=== PATIENT | female | born 1985 | race Caucasian/White ===

== ENCOUNTER 2017-01-25 17:44 | Emergency (ER) | payer MEDICAID ==
--- NOTE | 2017-01-25 18:02 | ED Physician Chart ---
ED Chief Complaint/HPI - Patient Information Date Seen:: 01/25/17 Time Seen:: 17:55 Chief Complaint:: Low abdominal pain for 1 week History of Present Illness:: 31 yo female, , had new onset of low abdominal pain for 1 week, followed by menstrual bleeding. The pain is sharp, constant, 10/10, not relieved by Ibuprofen. Denies nausea or vomiting. The patient was recently diagnosed with uterine fibroids 3 weeks ago due to abnormal vaginal bleeding for 1 year. Currently, the patient is on oral contraceptive pills. Allergies:: Allergies Allergy/AdvReac Type Severity Reaction Status Date / Time acetaminophen [From Vicodin] Allergy Verified 01/25/17 17:51 hydrocodone [From Vicodin] Allergy Verified 01/25/17 17:51 promethazine Allergy Verified 01/25/17 17:50 ED Review of Systems - Review of Systems General/Constitutional: No fever, No chills Skin: No skin lesions Head: No headache Eyes: No loss of vision ENT: No earache Neck: No neck pain Cardio Vascular: No chest pain Pulmonary: No SOB GI: No nausea, No vomiting G/U: No dysuria Bulldozer Engineer: Abnormal vaginal bleeding Musculoskeletal: No bone or joint pain ED Past Medical History - Past Medical History Past Medical History: No significant medical hx, Other () Social History: Non Smoker, No Alcohol, No Drug Use Surgical History: Cholecystectomy, , Hernia, other (Left ovarian cyst removal) Family Medical History - Family Member Mother History Unknown: Yes ED Physical Exam - Physical Examination General/Constitutional: Awake, Well-developed, well-nourished, Alert, Non-toxic appearing, Ambulatory Head: Atraumatic Eyes: PERRL, EOMI Skin: No skin lesions ENMT: External ears, nose nl Neck: Nontender, Full ROM w/o pain Respiratory: Clear to Auscultation, No Wheeze/Rhonchi/Rales Cardio Vascular: RRR, No murmur, gallop, rubs, NL S1 S2 Other GI comments:: obese, soft, tenderness at lower quadrant abdomen, bowel sound normal Extremities: normal strength in all extremities Neuro/Psych: No focal deficits ED Assessment - Assessment General Assessment: 31 yo female has low abdominal/pelvic pain, menorrhagia, blood loss anemia, uterine fibroids. Critical Care Time: 45 min Excludes all billable procedures: Yes This condition life threatening/high prob of deterioration: No Assessment/Comments:: CBC, CMP, PT/PTT, UA, hCG CT abdomen/pelvis Pain control ED Septic Shock - . Is Septic Shock (SBP<90, OR Lactate>4 mmol\L) present?: No
[2017-01-25 19:02] LABS: HEMATOCRIT 33.1 % (41.0-60); HEMOGLOBIN 10.8 gm/dL (12-16); MEAN CELL VOLUME 82.2 fl (81-100); MEAN CORPUSCULAR HEMOGLOBIN 26.8 pg (27.0-31.0); MEAN CORPUSCULAR HGB CONC 32.6 pg (28.0-36.0); MEAN PLATELET VOLUME 8.4 fl; PLATELET COUNT 240 Th/cmm (150-400); RED BLOOD COUNT 4.02 Mil/cmm (3.80-5.10)
[2017-01-25 19:15] LABS: INR 0.89 (0.5-1.4); PROTHROMBIN TIME (TEST) 9.1 SECONDS (9.5-11.5)
[2017-01-25 19:17] LABS: ALB/GLOB RATIO 1.3 (1.0-1.8); ALKALINE PHOSPHATASE 38 U/L (34-104); ANION GAP 8.6 (7.0-16.0); BILIRUBIN,TOTAL 0.3 mg/dL (0.3-1.0); BUN - UREA NITROGEN 13 mg/dL (7-25); BUN/CREATININE RATIO 16.3; CALCIUM SERUM 9.2 mg/dL (8.6-10.3); CARBON DIOXIDE 26.2 mEq/L (21.0-31.0); CHLORIDE 104 mEq/L (98-107); CREATININE - SERUM 0.8 mg/dL (0.6-1.2); GLUCOSE 99 mg/dL (70-105); POTASSIUM SERUM 3.8 mEq/L (3.5-5.1); SGOT 13 U/L (13-39); SGPT/ALT 10 U/L (7-52); SODIUM SERUM 135 mEq/L (136-145)
[2017-01-25 19:18] LABS: AMYLASE SERUM 27 U/L (29-103); LIPASE 18 U/L (11-82)
[2017-01-25 19:28] LABS: BAND NEUTROPHILE 1 % (0-10); EOSINOPHIL 1 % (0-5); NEUTROPHILS 83 % (40-80); TOTAL CELLS COUNTED 100
[2017-01-25] MEDS ORDERED: Acetaminophen 500 MG TAB PO ONE (19:28)
[2017-01-25 19:29] LABS: ANISOCYTOSIS 2+; PLATELET ESTIMATE ADEQUATE (NORMAL); PLATELET MORPHOLOGY NORMAL (NORMAL)
--- NOTE | 2017-01-25 21:21 | ER Physician Documentation ---
DATE OF SERVICE: 01/25/2017 I was endorsed by Dr. Johnston to see the CT scan of the abdomen and pelvis and if nothing acute is going on, to discharge the patient. I looked at all the labs and nothing significantly wrong was found. The patient will be going home. A CT of the abdomen and pelvis was done which showed an enlarged large fibroid uterus, which the patient knows of. She has seen the base loader. She is having vaginal bleeding. The base loader has already told she has a 5-cm left adnexal cystic lesion and an ultrasound was recommended. Prominent fatty liver, status post cholecystectomy. No free fluid in the abdomen, no small-bowel obstruction. It was interpreted by Dr. Shipley ____. This was explained to, Ayan, the nurse here, and this was discussed with him. I discussed the case with the patient. The patient will be going home and I felt the patient's belly, to me, it is lower abdominal pain and tenderness. There might be some pelvic inflammatory disease for which I have given doxycycline 100 mg p.o. twice a day for 7 days, Flagyl 500 mg p.o. 3 times a day for 7 days, ferrous sulfate, which might give constipation and black-colored stools, and just instructed the nurse to let her know. If she gets constipation, then she can take some Colace tablets. Otherwise one tablet should not cause a lot of trouble. She could use some fiber things, and the patient will be going home. JOB# [id number]
--- NOTE | 2017-01-26 00:40 | ER Physician Documentation ---
DATE OF SERVICE: 01/25/2017 PATIENT IDENTIFICATION: Emergency Room visit and evaluation and treatment for this patient and if medically cleared, the patient need to go to Psychiatric Unit that is the instruction I was given. The patient came to [facility] from [facility]. The patient's primary care physician is Dr. Matt Galindo, who advised that the patient to be admitted to a Psych Unit. The patient is not oriented to time and space, does not know what is going on with her. She knows she is in the hospital. According to one nurse, she said that she knew her name, but other than that she does not know why she is here. She does not know whether she is , whether her is alive, whether she has any children. In short, no history is obtained from the patient. HISTORY OF PRESENT ILLNESS: The patient's history that is passed on to me from the old thing is that the patient has low back pain. The patient has chronic obstructive lung disease, unspecified lack of coordination, other abnormalities of gait and mobility. The patient has chronic bronchitis, chronic kidney disease stage 3, moderate amount; age-related osteoporosis without current pathological fracture, atherosclerosis of the aorta, unspecified dementia without behavioral disturbances, Alzheimer's disease, personal history of malignant carcinoid tumor of large intestine, personal history of other pathological fracture. The patient was advised CT of the abdomen and pelvis and the patient was advised clean liquid diet and tramadol was ordered by Dr. Johnston, and I came on duty I ordered some labs and x-ray chest and x-ray chest does not show any definite evidence of pneumonia, but the patient does have some rales and rhonchi heard in both lung robertson, hence the x-ray chest was ordered to rule out pneumonia, but looks like the patient has chronic bronchitis and maybe some [id number] bronchitis. REVIEW OF SYSTEMS: Could not be obtained as the patient is confused and disoriented. PAST MEDICAL HISTORY: Cannot be obtained as the patient is again confused, disoriented. PHYSICAL EXAMINATION: GENERAL: On physical examination, the patient appears to be awake and does not know where she is. She does not know whether her is alive. She does not know whether she has any children. Adequately built, seems to be poorly nourished. HEENT: Conjunctivae are pink. Eyes are normal. Eyes: Pupils are reacting to light, somewhat about 2 mm. EXTREMITIES: No edema, no cyanosis, no petechia or ecchymosis. CHEST: Reveals bilateral scattered rales and rhonchi. Few scattered rales and rhonchi are audible. Trachea being central. Fairly good air entry in both lungs. BONES AND JOINTS: No fractures are noted. HEART: Reveals normal heart sounds. Soft fourth heart sound. Second heart sounds physiologically split. Third heart sound is absent. Fourth heart sound is soft. ABDOMEN: Soft, benign and negative. Lower midline surgical scar is noted. I am not sure what that scar is for, whether the patient had any hysterectomy done in the past or what surgery was done. CLINICAL DIAGNOSES: The patient has acute confusion, disorientation and loss of consciousness and decreased appetite and for the patient orders has been returning to get some workup to be done and no lab results are available at the present moment, but will give a call to Dr. Gutierrez once we get some labs and the patient will be admitted to the Psych Unit. FINAL DIAGNOSES: Acute loss of consciousness, confusion, disorientation, weakness, probably dementia, generalized weakness and decreased appetite. The patient has other diagnoses which includes low back pain and [id number] bronchitis. No definite pneumonia is noted. Lack of coordination, other abnormalities of gait and mobility, unspecified chronic bronchitis. The patient had in the past, chronic kidney disease stage 3, age-related osteoporosis without current pathological fracture, atherosclerosis of the aorta, unspecified dementia without behavioral disturbances, Alzheimer disease, unspecified; personal history of malignant carcinoid tumor of large intestine, and personal history of pathological fractures. Thank you again. JOB# [id number]
--- NOTE | 2017-01-26 07:41 | Diagnostic Imaging Report ---
CT scan of the abdomen and pelvis without intravenous contrast History: Lower abdominal pain Total DLP equals 581 CTDI equals 12.8 Axial sections were obtained from the xiphoid process down to the pubic symphysis. Normal aeration of lung parenchyma the bases appreciated. The liver demonstrates hepatomegaly. Fatty infiltration is noted. No focal lesions are seen. There is evidence of previous cholecystectomy. The spleen appears normal. No abnormalities are seen in the region of the pancreas. The kidneys appear normal bilaterally. Adrenal glands are normal The exam of the pelvis demonstrates enlarged fibroid uterus measuring 13 cm longest diameter. There is evidence for 5.1 cm left adnexal cyst most likely ovarian origin ultrasound examination of pelvis recommended. Impression: 1. Hepatomegaly fatty infiltration of liver parenchyma. 2. Status post cholecystectomy. 3. Enlarged fibroid uterus with left adnexal cystic lesion which might represent ovarian cyst ultrasound examination of pelvis is recommended.
== END 2017-01-25 20:30 | disposition home or self-care (01) ==
LOC: ER 17:44
DX: R10.30 Lower abdominal pain, unspecified (principal); N92.0 Excessive and frequent menstruation with regular cycle; D50.0 Iron deficiency anemia secondary to blood loss (chronic); D25.9 Leiomyoma of uterus, unspecified
CPT/HCPCS: 99291; 74176; 36415; 85007; 85027; 85610; 82150; 84703; 81025; 83690; 80053; J0696; Z7502

== ENCOUNTER 2017-01-28 05:31 | Inpatient (IN) | payer MEDICAID ==
--- NOTE | 2017-01-28 06:02 | ED Physician Chart ---
ED Chief Complaint/HPI - Patient Information Date Seen:: 01/28/17 Time Seen:: 05:30 Chief Complaint:: Abdominal Pain History of Present Illness:: onset x 3 hours RRT of intermittent, crampy, diffuse abdominal pain, especially in the lower quadrants with N/V; pt denies trauma, H/As, neck pain, S/T, C/P, SOB, cough, fever, chills, or urinary s/s; pt is A0; LNMP: pt has irregular menstual periods Allergies:: Allergies Allergy/AdvReac Type Severity Reaction Status Date / Time acetaminophen [From Vicodin] Allergy Verified 01/25/17 17:51 hydrocodone [From Vicodin] Allergy Verified 01/25/17 17:51 promethazine Allergy Verified 01/25/17 17:50 Historian:: Patient Review:: Nurse's Note Reviewed <Uvaldo Kennedy - Last Filed: 01/28/17 05:57> - Patient Information Allergies:: Allergies Allergy/AdvReac Type Severity Reaction Status Date / Time acetaminophen [From Vicodin] Allergy Verified 01/25/17 17:51 hydrocodone [From Vicodin] Allergy Verified 01/25/17 17:51 promethazine Allergy Verified 01/25/17 17:50 Vitals:: Vital Signs - 8 hr 01/28/17 05:35 HR 111 RR 20 BP 138/89 O2 Sat % 99 <Armand Thomas - Last Filed: 01/28/17 12:14> ED Review of Systems - Review of Systems General/Constitutional: No fever, No chills, No weight loss, No weakness, No diaphoresis, No edema, No loss of appetite Skin: No skin lesions, No rash, No bruising Head: No headache, No light-headedness Eyes: No loss of vision, No pain, No diplopia ENT: No earache, No nasal drainage, No sore throat, No tinnitus Neck: No neck pain, No swelling, No thyromegaly, No stiffness, No mass noted Cardio Vascular: No chest pain, No palpitations, No PND, No orthopnea, No edema Pulmonary: No SOB, No cough, No sputum, No wheezing GI: Nausea, Vomiting, Diarrhea, Pain, No melena, No hematochezia, No constipation, No hematemesis G/U: No dysuria, No frequency, No hematuria Flatbed Owner Operator: Vaginal discharge, Abnormal vaginal bleeding, No contraction Musculoskeletal: No bone or joint pain, No back pain, No muscle pain Endocrine: No polyuria, No polydipsia Psychiatric: No prior psych history, No depression, No anxiety, No suicidal ideation Hematopoietic: No bruising, No lymphadenopathy Allergic/Immuno: No urticaria, No angioedema Neurological: No syncope, No focal symptoms, No weakness, No paresthesia, No headache, No seizure, No dizziness, No confusion, No vertigo <Uvaldo Kennedy - Last Filed: 01/28/17 05:57> ED Past Medical History - Past Medical History Obtainable: Yes Past Medical History: Other (Uterine Fibroids) Family History: HTN Social History: Non Smoker, No Alcohol, No Drug Use, Single Surgical History: None Psychiatricy History: None Medication: Reviewed <Uvaldo Kennedy Karl Filed: 01/28/17 05:57> Family Medical History - Family Member Mother History Unknown: Yes <Uvaldo Kennedy [facility] Filed: 01/28/17 05:57> ED Physical Exam - Physical Examination General/Constitutional: Awake, Well-developed, well-nourished, Alert, No distress, GCS 15, Non-toxic appearing, Ambulatory Head: Atraumatic Eyes: Lids, conjuctiva normal, PERRL, EOMI Skin: Nl inspection, No rash, No skin lesions, No ecchymosis, Well hydrated, No lymphadenopathy ENMT: External ears, nose nl, Nasal exam nl, Lips, teeth, gums nl Neck: Nontender, Full ROM w/o pain, No JVD, No nuchal rigidity, No bruit, No mass, No stridor Respiratory: Nl effort/Exclusion, Clear to Auscultation, No Wheeze/Rhonchi/Rales Cardio Vascular: RRR, No murmur, gallop, rubs, NL S1 S2 GI: No organomegaly, No hernia, Normal BS's, Nondistended, No mass/bruits, No McBurney tenderness Other GI comments:: + Diffuse Tenderness : No CVA tenderness Extremities: No tenderness or effusion, Full ROM, normal strength in all extremities, No edema, Normal digits & nails Neuro/Psych: Alert/oriented, DTR's symmetric, Normal sensory exam, Normal motor strength, Judgement/insight normal, Mood normal, Normal gait, No focal deficits Misc: Normal back, No paraspinal tenderness <Uvaldo Kennedy - Last Filed: 01/28/17 05:57> ED Labs/Radiology/EKG Results - Lab Results Results: Laboratory Tests 01/28/17 01/28/17 01/28/17 06:18 06:18 06:18 WBC 12.5 H D RBC 3.76 L Hgb 10.3 L Hct 31.1 L MCV 82.5 MCH 27.3 MCHC Differential 33.0 RDW 24.8 H Plt Count 214 MPV 8.3 Band Neutrophils % 5 Neutrophils (Manual) 89 H Lymphocytes 4 L Monocytes 2 Anisocytosis 1+ Sodium 134 L Potassium 3.9 Chloride 105 Carbon Dioxide 21.6 Anion Gap 11.3 BUN 14 Creatinine 0.7 Est GFR ( Amer) > 60.0 Est GFR (Non-Af Amer) > 60.0 BUN/Creatinine Ratio 20.0 Glucose 111 H Whole Bld Lactic Acid Calcium 8.7 Total Bilirubin 0.5 AST 12 L ALT 12 Alkaline Phosphatase 42 Total Protein 6.5 Albumin 3.6 L Globulin 2.9 Albumin/Globulin Ratio 1.2 Amylase 22 L Lipase 14 Serum , Qual NEGATIVE Urine Source Urine Color Urine Clarity Urine pH Ur Specific Reform Urine Protein Urine Glucose (UA) Urine Ketones Urine Blood Urine Nitrate Urine Bilirubin Urine Urobilinogen Ur Leukocyte Esterase Urine RBC Urine WBC Ur Epithelial Cells Urine Bacteria POC Ur Test 01/28/17 01/28/17 01/28/17 06:20 06:27 06:40 WBC RBC Hgb Hct MCV MCH MCHC Differential RDW Plt Count MPV Band Neutrophils % Neutrophils (Manual) Lymphocytes Monocytes Anisocytosis Sodium Potassium Chloride Carbon Dioxide Anion Gap BUN Creatinine Est GFR ( Amer) Est GFR (Non-Af Amer) BUN/Creatinine Ratio Glucose Whole Bld Lactic Acid 1.87 Calcium Total Bilirubin AST ALT Alkaline Phosphatase Total Protein Albumin Globulin Albumin/Globulin Ratio Amylase Lipase Serum , Qual Urine Source CLEAN C Urine Color RED Urine Clarity BLOODY H Urine pH 5.0 Ur Specific Reform 1.020 Urine Protein >=300 Urine Glucose (UA) 250 H Urine Ketones 15 H Urine Blood LARGE H Urine Nitrate POSITIVE H Urine Bilirubin NEGATIVE Urine Urobilinogen 4.0 H Ur Leukocyte Esterase MODERATE H Urine RBC >100 H Urine WBC 6-10 H Ur Epithelial Cells OCCASIONAL Urine Bacteria FEW POC Ur Test Negative <Armand Thomas - Last Filed: 01/28/17 12:14> ED Assessment - Assessment General Assessment: Patient had onset at 2:00 in the morning of right lower quadrant pain radiating to the right flank. Patient denies vomiting or diarrhea. Patient is currently on her menstrual period..Movement increases the pain. PMH: Uterine fibroids; patient has a history of cholecystectomy and surgery for left ovarian cyst. Patient's well-developed well-nourished no acute distress; chest clear symmetrical breath sounds; heart rate regular rhythm with no murmur or extra sound; abdomen bowel sounds present abdomen is soft there's for right lower quadrant tenderness. At 11:30 patient had right lower quadrant tenderness with rebound tenderness. Pain was improved but she felt it was going to come back soon. Pelvic ultrasound was suboptimal apparently due to patient movement. CAT scan showed right anterior lateral abdominal wall hernia and no signs of appendicitis although the appendix was not visualized and no hydronephrosis Assessment/Comments:: At 0945 patient still had right-sided abdominal pain unrelieved by Toradol 15 mg intravenously. Patient had right-sided abdominal tenderness without guarding. <Armand Thomas - Last Filed: 01/28/17 12:14> ED Septic Shock - . Is Septic Shock (SBP<90, OR Lactate>4 mmol\L) present?: No <Uvaldo Kennedy - Last Filed: 01/28/17 05:57> - <6hrs of presentation: Vital Signs: Vital Signs - 8 hr 01/28/17 05:35 HR 111 RR 20 BP 138/89 O2 Sat % 99 <Armand Thomas - Last Filed: 01/28/17 12:14> ED Reassessment (Disposition) - Reassessment Reassessment Condition:: Unchanged - Diagnosis Diagnosis:: Abdominal pain; acute appendicitis - Patient Disposition Admitted to:: Med/Surg Spoke to:: Mateo Gutierrez Admitting Medical Physician:: Mateo Gutierrez <Armand Thomas - Last Filed: 01/28/17 12:14>
[2017-01-28] MEDS ORDERED: Sodium Chloride 0.9% 1,000 ML IV ONE (06:05)
[2017-01-28] MEDS ORDERED: Morphine Sulfate 2 mg/mL 1mL Syr ONE (06:19)
[2017-01-28 06:27] LABS: HEMATOCRIT 31.1 % (41.0-60); HEMOGLOBIN 10.3 gm/dL (12-16); MEAN CELL VOLUME 82.5 fl (81-100); MEAN CORPUSCULAR HEMOGLOBIN 27.3 pg (27.0-31.0); MEAN PLATELET VOLUME 8.3 fl; PLATELET COUNT 214 Th/cmm (150-400); RED BLOOD COUNT 3.76 Mil/cmm (3.80-5.10); RED CELL DISTRIBUTION WIDTH 24.8 % (11.5-20.0)
[2017-01-28 06:30] LABS: WHITE BLOOD COUNT 12.5 Th/cmm (4.8-10.8)
[2017-01-28 06:41] LABS: ALB/GLOB RATIO 1.2 (1.0-1.8); ALKALINE PHOSPHATASE 42 U/L (34-104); AMYLASE SERUM 22 U/L (29-103); ANION GAP 11.3 (7.0-16.0); BILIRUBIN,TOTAL 0.5 mg/dL (0.3-1.0); BUN - UREA NITROGEN 14 mg/dL (7-25); CALCIUM SERUM 8.7 mg/dL (8.6-10.3); CARBON DIOXIDE 21.6 mEq/L (21.0-31.0); CHLORIDE 105 mEq/L (98-107); CREATININE - SERUM 0.7 mg/dL (0.6-1.2); GLUCOSE 111 mg/dL (70-105); LIPASE 14 U/L (11-82); POTASSIUM SERUM 3.9 mEq/L (3.5-5.1); SGOT 12 U/L (13-39); SGPT/ALT 12 U/L (7-52); SODIUM SERUM 134 mEq/L (136-145)
[2017-01-28 06:44] LABS: BAND NEUTROPHILE 5 % (0-10); NEUTROPHILS 89 % (40-80); TOTAL CELLS COUNTED 100
[2017-01-28 06:45] LABS: ANISOCYTOSIS 1+
[2017-01-28 06:50] LABS: URINE BILIRUBIN NEGATIVE (NEGATIVE); URINE BLOOD LARGE (NEGATIVE); URINE GLUCOSE (UA) 250 mg/dL (NEGATIVE); URINE KETONE 15 mg/dL (NEGATIVE); URINE PROTEIN >=300 mg/dL (NEGATIVE)
[2017-01-28 06:51] LABS: URINE COLOR RED
[2017-01-28 06:53] LABS: URINE BACTERIA FEW /hpf (NONE SEEN); URINE EPITHELIAL CELLS OCCASIONAL /lpf (FEW); URINE RBC >100 /hpf (0-5)
[2017-01-28] MEDS ORDERED: HYDROmorphone 1 mg/mL 1mL Syr IVP STA (09:48)
[2017-01-28] MEDS ORDERED: HYDROmorphone 1 mg/mL 1mL Syr ONE (09:59)
--- NOTE | 2017-01-28 11:04 | Diagnostic Imaging Report ---
CT scan abdomen and pelvis without intravenous contrast HISTORY: Pain Total DLP equals 625 CTDI equals 13.3 Axial sections were obtained from the xiphoid process down to the pubic symphysis. The exam is compared with a prior study of 01/25/2017. The liver is enlarged. There is a decrease in overall hepatic parenchymal density consistent with fatty infiltration. No focal lesions are seen. The spleen is generous in size. Surgical clips are noted in the pro hepatis region consistent with a prior cholecystectomy. No focal amenities seen within the pancreas. No significant focal renal lesions. There is an approximate 5.8 cm defect noted along the right anterior lateral abdominal wall associated with a fat-containing hernia. No bowel dilatation. As noted previously, there is a markedly enlarged uterus (10.0 x 10.0 x 10.0 cm). The findings may be associated fibroid changes. There is a persistent 4.2 cm hypodense cystic lesion adjacent to the posterior margin of the uterus. Exact site of origin is uncertain. This may be related to the ovary. A corresponding ultrasound exam is not diagnostic due to lack of patient cooperation. When the would permit, a pelvic ultrasound exam is recommended. IMPRESSION: 1. Approximate 5.8 cm defect along the right anterior lateral abdominal wall associated with a fat-containing hernia. The findings should be correlated with patient's symptoms and physical exam. 2. Markedly enlarged uterus 3. 4.2 cm cystic lesion adjacent to the posterior margin of the uterus. Exact site of origin is uncertain. When the patient will permit, a pelvic ultrasound exam is recommended. 4. Hepatomegaly along with evidence of fatty infiltration. The changes should be correlated with liver function tests. 5. Status post cholecystectomy
--- NOTE | 2017-01-28 11:06 | Diagnostic Imaging Report ---
Pelvic ultrasound HISTORY: Pain Exam is very limited and incomplete due to lack of patient cooperation. The patient would not allow for transvaginal sonographic evaluation. Transabdominal images are very limited due to lack of bladder distention. There is an enlarged uterus (approximately 15.1 x 9.8 x 10.4 cm). Detail is limited. There is suggestion of endometrial thickening (1.1 cm). The ovaries cannot be outlined. A CT demonstrated cystic lesion adjacent to left posterior margin of the uterus could not be sonographically seen at this time. IMPRESSION: 1. Very limited/suboptimal/incomplete exam due to lack of patient cooperation 2. Markedly enlarged uterus 3. Suggestion of endometrial thickening (1.1 cm). The findings should be correlated clinically and with menstrual status 4. CT demonstrated cystic lesion adjacent to the left posterior margin of the uterus cannot be sonographically seen at this time. The examination should be repeated when the patient will cooperate and permit.
--- NOTE | 2017-01-28 11:11 | Diagnostic Imaging Report ---
Abdominal ultrasound HISTORY: Pain The liver appears enlarged. There is an increase in parenchymal echogenicity suggesting fatty infiltration. No focal lesions. The gallbladder is not seen consistent with patient's surgical history. Common bile duct measures 7 mm in diameter. This is within normal limits status post cholecystectomy. The pancreas cannot be well seen due to bowel gas. There is incomplete delineation of the kidneys with no obvious focal lesions or hydronephrosis. The spleen is somewhat increased in size. No other retroperitoneal or intra-abdominal abnormalities. IMPRESSION: 1. Limited exam due to patient's size, body habitus, bowel gas 2. Hepatosplenomegaly along with findings suggesting hepatic fatty infiltration. The changes should be correlated with liver function tests. 3. Status post cholecystectomy
[2017-01-28] MEDS ORDERED: D5-0.9%NS 1,000 ML IV SCH (12:45)
[2017-01-28] MEDS ORDERED: Albuterol Nebulizer 2.5mg/3mL HHN PRN (12:45)
[2017-01-28] MEDS ORDERED: guaiFENesin 200 MG/10 ML UDC PO PRN (12:45)
[2017-01-28 13:33] LABS: INR 1.16 (0.5-1.4); PROTHROMBIN TIME (TEST) 12.2 SECONDS (9.5-11.5)
--- NOTE | 2017-01-28 14:14 | General Progress Note ---
Subjective - Review of Systems Service Date: 01/28/17 Events since last encounter: CT and US show marked uterus enlargement no mention of enlarged apendix observe, Gyne consult, labs in AM Objective - Results Result Diagrams: 01/28/17 06:18 01/28/17 06:18 Recent Labs: Laboratory Last Values WBC 12.5 Th/cmm (4.8-10.8) H D 01/28/17 06:18 RBC 3.76 Mil/cmm (3.80-5.10) L 01/28/17 06:18 Hgb 10.3 gm/dL (12-16) L 01/28/17 06:18 Hct 31.1 % (41.0-60) L 01/28/17 06:18 MCV 82.5 fl (81-100) 01/28/17 06:18 MCH 27.3 pg (27.0-31.0) 01/28/17 06:18 MCHC Differential 33.0 pg (28.0-36.0) 01/28/17 06:18 RDW 24.8 % (11.5-20.0) H 01/28/17 06:18 Plt Count 214 Th/cmm (150-400) 01/28/17 06:18 MPV 8.3 fl 01/28/17 06:18 Band Neutrophils % 5 % (0-10) 01/28/17 06:18 Neutrophils (Manual) 89 % (40-80) H 01/28/17 06:18 Lymphocytes 4 % (20-50) L 01/28/17 06:18 Monocytes 2 % (2-10) 01/28/17 06:18 Anisocytosis 1+ 01/28/17 06:18 PT 12.2 SECONDS (9.5-11.5) H 01/28/17 13:05 INR 1.16 (0.5-1.4) 01/28/17 13:05 PTT (Actin FS) 22.3 SECONDS (26.0-38.0) L 01/28/17 13:05 Sodium 134 mEq/L (136-145) L 01/28/17 06:18 Potassium 3.9 mEq/L (3.5-5.1) 01/28/17 06:18 Chloride 105 mEq/L (98-107) 01/28/17 06:18 Carbon Dioxide 21.6 mEq/L (21.0-31.0) 01/28/17 06:18 Anion Gap 11.3 (7.0-16.0) 01/28/17 06:18 BUN 14 mg/dL (7-25) 01/28/17 06:18 Creatinine 0.7 mg/dL (0.6-1.2) 01/28/17 06:18 Est GFR ( Amer) > 60.0 ml/min (>90) 01/28/17 06:18 Est GFR (Non-Af Amer) > 60.0 ml/min 01/28/17 06:18 BUN/Creatinine Ratio 20.0 01/28/17 06:18 Glucose 111 mg/dL (70-105) H 01/28/17 06:18 Whole Bld Lactic Acid 1.87 mmol/L (0.60-1.99) 01/28/17 06:40 Calcium 8.7 mg/dL (8.6-10.3) 01/28/17 06:18 Total Bilirubin 0.5 mg/dL (0.3-1.0) 01/28/17 06:18 AST 12 U/L (13-39) L 01/28/17 06:18 ALT 12 U/L (7-52) 01/28/17 06:18 Alkaline Phosphatase 42 U/L (34-104) 01/28/17 06:18 Total Protein 6.5 gm/dL (6.0-8.3) 01/28/17 06:18 Albumin 3.6 gm/dL (3.7-5.3) L 01/28/17 06:18 Globulin 2.9 gm/dL 01/28/17 06:18 Albumin/Globulin Ratio 1.2 (1.0-1.8) 01/28/17 06:18 Amylase 22 U/L (29-103) L 01/28/17 06:18 Lipase 14 U/L (11-82) 01/28/17 06:18 Serum , Qual NEGATIVE (NEGATIVE) 01/28/17 06:18 Urine Source CLEAN C 01/28/17 06:20 Urine Color RED 01/28/17 06:20 Urine Clarity BLOODY (CLEAR) H 01/28/17 06:20 Urine pH 5.0 (4.6 - 8.0) 01/28/17 06:20 Ur Specific [place] 1.020 (1.005-1.030) 01/28/17 06:20 Urine Protein >=300 mg/dL (NEGATIVE) 01/28/17 06:20 Urine Glucose (UA) 250 mg/dL (NEGATIVE) H 01/28/17 06:20 Urine Ketones 15 mg/dL (NEGATIVE) H 01/28/17 06:20 Urine Blood LARGE (NEGATIVE) H 01/28/17 06:20 Urine Nitrate POSITIVE (NEGATIVE) H 01/28/17 06:20 Urine Bilirubin NEGATIVE (NEGATIVE) 01/28/17 06:20 Urine Urobilinogen 4.0 E.U./dL (0.2 - 1.0) H 01/28/17 06:20 Ur Leukocyte Esterase MODERATE (NEGATIVE) H 01/28/17 06:20 Urine RBC >100 /hpf (0-5) H 01/28/17 06:20 Urine WBC 6-10 /hpf (0-5) H 01/28/17 06:20 Ur Epithelial Cells OCCASIONAL /lpf (FEW) 01/28/17 06:20 Urine Bacteria FEW /hpf (NONE SEEN) 01/28/17 06:20 POC Ur Test Negative 01/28/17 06:27 - Physical Exam Vitals and I&O: Vital Signs Temp 100.3 F 01/28/17 08:05 Pulse 117 01/28/17 08:05 Resp 18 01/28/17 08:05 BP 130/81 01/28/17 08:05 Pulse Ox 100 01/28/17 08:05 Active Medications: Current Medications Albuterol Sulfate (Albuterol 2.5mg/3ml Neb Ud) 2.5 mg HHN Q2HRT PRN PRN Reason: Shortness of Breath or Wheeze Stop: 03/29/17 12:44 Guaifenesin (Robitussin) 200 mg PO Q4HR PRN PRN Reason: Cough or Congestion Stop: 03/29/17 12:44 Heparin Sodium (Porcine) (Heparin) 5,000 units SUBQ Q12HR HENRRY Stop: 03/29/17 20:59 Dextrose/Sodium Chloride (D5-0.9%Ns) 1,000 mls @ 100 mls/hr IV .Q10H HENRRY Stop: 03/29/17 12:44 Piperacillin Sod/Tazobactam (Sod 4.5 gm/ Sodium Chloride) 100 mls @ 100 mls/hr IV Q8HR HENRRY Stop: 03/29/17 13:44 Ibuprofen (Motrin) 600 mg PO Q6HR PRN PRN Reason: Mild-ModeratPain or Fever >101 Stop: 03/29/17 12:48 Morphine Sulfate (Morphine) 2 mg IVP Q4H PRN PRN Reason: Pain (Severe) Stop: 03/29/17 12:49 Ondansetron HCl (Zofran) 4 mg IV Q8H PRN PRN Reason: Nausea / Vomiting Stop: 03/29/17 12:44 Zolpidem Tartrate (Ambien) 10 mg PO HS PRN PRN Reason: Insomnia Stop: 03/29/17 12:44 - Procedures Procedures: Procedures Procedure Code Date DELIVERY ONLY 53231 06/09/06 LOW CERVICAL 74.1 06/09/06 OTHER & OPEN REPAIR UMBILICAL HERNIA W GRAFT OR PROSTHESIS 53.41 11/25/06 OVARIAN WEDGE RESECTION 65.22 06/12/99 PARTIAL REMOVAL OF OVARY(S) 89600 06/12/99 RPR UMBIL NICOLE BLOCK > 5 YR 61749 11/25/06 Assessment/Plan - Problem List Patient Problems: All Active Problems LOWER ABDOMINAL PAIN (Acute)
--- NOTE | 2017-01-28 14:19 | History & Physical ---
ADMIT DATE: 01/28/2017 CHIEF COMPLAINT: Abdominal pain. HISTORY OF PRESENT ILLNESS: This is a 31-year-old female with history of anemia, was admitted secondary to abdominal pain started at 2:30 in the morning with associated nausea and vomiting. The patient seen by ____ Emergency Room who ____ acute appendicitis. The patient with low-grade fever at home, abdominal pain in the right lower quadrant. PAST MEDICAL HISTORY: As mentioned in history present illness. PAST SURGICAL HISTORY: Status post hernia repair in the mid abdomen, gallbladder surgery and . ALLERGIES: NORCO, PROMETHAZINE. FAMILY HISTORY: Denies. MEDICATIONS: The patient is better controlled with ____ iron. FAMILY HISTORY: Denies diabetes or coronary artery disease. SOCIAL HISTORY: Nonsmoker, nondrinker, no intravenous drug use. The patient is single, one child. REVIEW OF SYSTEMS: GENERAL: The patient complains of not feeling well as well as low-grade fever. HEENT: No blurred vision. LUNGS: Denies any COPD or asthma. HEART: Denies hypertension or coronary artery disease. ABDOMEN: As mentioned in history present illness. NEUROLOGIC: No headache, seizure or syncope. PSYCHIATRIC: The patient denies. PHYSICAL EXAMINATION: VITAL SIGNS: Blood pressure 130/80, respirations 18, pulse 117, temperature 100.3. GENERAL: Morbidly obese young female. The patient was seen with a medical staff at the bedside. NECK: Supple. No mass. LUNGS: Equal breath sounds, few rhonchi. HEART: Regular rate and rhythm without appreciable murmur. ABDOMEN: Soft, globular, tender on the right lower quadrant. NEUROLOGIC: Limited, moving 4 extremities. LABORATORY DATA: WBC 12.5, hemoglobin 10.3, platelets 214. Sodium 134, potassium 3.9, BUN 14, creatinine 0.7, blood sugar 111, AST and ALT 12 and 12 respectively, albumin 3.6, lipase 92. UA: Large blood, positive nitrite, 10 wbc's, 100 rbc's. ASSESSMENT AND PLAN: Fever, abdominal pain, possible appendicitis, leukocytosis, obesity, anemia, hyponatremia, hyperglycemia, mild protein-calorie malnutrition, urinary tract infection, hematuria, fatty liver disease. We will ____ abdominal and pelvic ultrasound as well as CT abdomen and I will continue IV hydration and IV antibiotic. We will keep the patient n.p.o. Continue anti-inflammatory medication. We will refer the patient for surgery. We will monitor the patient closely. [facility]# [id number]
[2017-01-28] MEDS: Morphine Sulfate 2 mg/mL 1mL Syr IVP PRN ×2 (14:49→18:47)
--- NOTE | 2017-01-28 15:45 | Consultation ---
DATE OF CONSULTATION: 01/28/2017 SURGICAL CONSULTATION REFERRING PHYSICIAN: Dr. Gutierrez. REASON FOR CONSULTATION: Abdominal pain. Thank you for referring this patient to me. 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 on the day of admission. She had nausea and vomiting 3 times. She is in her period right now, and the mother thinks this is major contributory factor. The patient underwent CT scan of the abdomen, which showed a small hernia on the right anterolateral abdominal wall associated with fat pad. There is a markedly enlarged uterus with 4.2 cystic lesion adjacent to the posterior margin. There is hepatomegaly and fatty infiltration. The patient aside of cholecystectomy of open type. Ultrasound of the abdomen was done and this showed again the markedly enlarged uterus with endometrial wall thickening. The abdominal ultrasound did not show the appendix. The laboratory studies are essentially normal. There is slight leukocytosis. PHYSICAL EXAMINATION: The patient claims tenderness in the lower abdomen with the questionable rebound. RECOMMENDATIONS: In view of the CT findings about markedly enlarged uterus, the patient needs ASSEMBLY ROOM SUPERVISOR evaluation as soon as possible. There appears to be no appendicitis identified on clinical examination and on ultrasound and CAT scan studies at this point. PLAN: We will advice admission and further evaluation as recommended. JOB# [id number]
== END 2017-01-28 21:25 | disposition short-term general hospital (02) | DRG 254 ==
LOC: ER 05:31 → MSI 13:05
PROVIDERS: ADMIT Internal Medicine; ATTEND Internal Medicine
DX: K37 Unspecified appendicitis (principal); E44.1 Mild protein-calorie malnutrition; K76.0 Fatty (change of) liver, not elsewhere classified; E87.1 Hypo-osmolality and hyponatremia; E66.9 Obesity, unspecified; N39.0 Urinary tract infection, site not specified; R31.9 Hematuria, unspecified; D64.9 Anemia, unspecified; Z68.39 Body mass index [BMI] 39.0-39.9, adult
CPT/HCPCS: 36415-UA; 76700-TC; 76856-TC; 80053-TC; 81001-TC; 81025-TC; 82150-TC; 83605; 83690-TC; 84703-TC; 85007-TC; 85027-TC; 85610-TC; 94760; 96374; 96375; 96376; J1170; J1885; J2270; J2405; J2543; J7030; J7042

== ENCOUNTER 2017-05-26 19:30 | Emergency (ER) | payer MEDICAID ==
--- NOTE | 2017-05-26 20:02 | ED Physician Chart ---
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 Today she noted dehiscence along the left side of the incision line. No chills or fever, vomiting, diarrhea. Bloody discharge is coming from the dehiscence. Allergies:: Allergies Allergy/AdvReac Type Severity Reaction Status Date / Time acetaminophen [From Vicodin] Allergy Verified 05/26/17 19:49 hydrocodone [From Vicodin] Allergy Verified 05/26/17 19:49 promethazine Allergy Verified 05/26/17 19:49 Vitals:: Vital Signs - 8 hr 05/26/17 19:30 Temp 97.8 F HR 87 RR 18 BP 122/71 O2 Sat % 97 Historian:: Patient Review:: Nurse's Note Reviewed ED Review of Systems - Review of Systems General/Constitutional: No fever, No chills Skin: No skin lesions Head: No headache Eyes: No loss of vision ENT: No earache Neck: No neck pain, No swelling Cardio Vascular: No chest pain, No palpitations Pulmonary: No SOB GI: No nausea, No vomiting, No diarrhea G/U: No dysuria Musculoskeletal: No bone or joint pain, No back pain, No muscle pain Endocrine: No polyuria, No polydipsia Psychiatric: No prior psych history Hematopoietic: No bruising Allergic/Immuno: No urticaria Neurological: No syncope, No focal symptoms ED Past Medical History - Past Medical History Past Medical History: No significant medical hx Family History: Diabetes Mel[place] Social History: Non Smoker, No Alcohol Surgical History: Cholecystectomy, Hysterectomy, , other (umbilical hernia) Psychiatricy History: None Medication: None Family Medical History - Family Member Mother History Unknown: Yes Ethnicity: Non- Hx Family Diabetes: Yes ED Physical Exam - Physical Examination General/Constitutional: Awake, Well-developed, well-nourished, Alert, No distress Head: Atraumatic Eyes: Lids, conjuctiva normal, PERRL Other Skin comments:: 2 cm wound dehiscence of left lateral aspect of low abdominal incision line; supra pubic erythema with well demarcated superior border ENMT: External ears, nose nl Neck: No nuchal rigidity Respiratory: Nl effort/Exclusion, Clear to Auscultation, No Wheeze/Rhonchi/Rales Cardio Vascular: RRR, No murmur, gallop, rubs GI: No organomegaly, No hernia, Normal BS's Other GI comments:: See under skin : No CVA tenderness Extremities: Normal digits & nails Neuro/Psych: No focal deficits Misc: Normal back ED Assessment - Assessment General Assessment: Dehiscence of the incision line probably indicates an infection so the patient will be prescribed Keflex 500 mg 4 times a day for 10 days. She also has tinea corporis on the lower abdominal wall and suprapubic area for which she will be prescribed Lotrisone 40 g tube to apply sparingly twice a day. ED Septic Shock - . Is Septic Shock (SBP<90, OR Lactate>4 mmol\L) present?: No - <6hrs of presentation: Vital Signs: Vital Signs - 8 hr 05/26/17 19:30 Temp 97.8 F HR 87 RR 18 BP 122/71 O2 Sat % 97 ED Reassessment (Disposition) - Reassessment Reassessment Condition:: Unchanged - Diagnosis Diagnosis:: Incision line dehiscence; tinea corporis - Aftercare/Follow up Instructions Aftercare/Follow-Up Instructions:: Refer to Discharge Instructions - Patient Disposition Discharge/Transfer:: Home Condition at Disposition:: Stable, Unchanged
== END 2017-05-26 20:25 | disposition home or self-care (01) ==
LOC: ER 19:30
DX: T81.33XA Disruption of traumatic injury wound repair, initial encounter (principal); B35.9 Dermatophytosis, unspecified; X58.XXXA Exposure to other specified factors, initial encounter; Y93.89 Activity, other specified; Y92.89 Other specified places as the place of occurrence of the external cause; Y99.8 Other external cause status
CPT/HCPCS: Z7502

== ENCOUNTER 2018-05-25 14:58 | Emergency (ER) | payer MEDICAID ==
--- NOTE | 2018-06-02 12:05 | ER Physician Documentation ---
DATE OF SERVICE: 05/25/2018 HISTORY OF PRESENT ILLNESS: This is a 32-year-old female patient who presents with red swollen area on her neck for the past 4-5 days. The patient denies pain. There was no history of trauma. The patient denies headaches, musculoskeletal, neck pain, chest pain, shortness of breath, abdominal pain, nausea, vomiting or diarrhea. The patient is eating and urinating well. PAST MEDICAL HISTORY: None. PAST SURGICAL HISTORY: None. MEDICATIONS: None. ALLERGIES: The patient is allergic to VICODIN, HYDROCODONE and PROMETHAZINE. FAMILY HISTORY: Unremarkable. REVIEW OF SYSTEMS: Otherwise, noncontributory. PHYSICAL EXAMINATION: GENERAL: Found the patient in no acute distress, alert and oriented x 3. VITAL SIGNS: Afebrile, vital signs stable. HEENT: Negative. NECK: Revealed localized area of cellulitis on the right side of the neck. No foreign bodies. No cervical tenderness. Neck is supple. No cervical tenderness. No meningeal signs. CARDIOVASCULAR: Regular rate and rhythm. LUNGS: Clear. ABDOMEN: Soft, nontender, normoactive bowel sounds. No pulsatile masses. EXTREMITIES: No edema, clubbing, or cyanosis. NEUROLOGIC: No focal signs. EMERGENCY DEPARTMENT COURSE: The patient is stable upon discharge and thus the patient was discharged with prescription for Keflex 500 mg 4 times a day for 10 days, Neosporin ointment twice a day for 14 days, warm compresses, heating pads to affected areas. The patient to be referred to a vascular surgeon, photo finish photographer as soon as possible. Followup care otherwise with primary physician in one day or as needed. Return to the Emergency Room as needed if the above symptoms should reoccur and/or get worse and/or any other new symptoms should occur, otherwise return to the Emergency Room as needed if concerned. Followup care with primary care physician in one day or as needed. DIAGNOSIS: Localized cellulitis. [facility]# [id number]
== END 2018-05-25 15:45 | disposition home or self-care (01) ==
LOC: ER 14:58
DX: L03.221 Cellulitis of neck (principal)
CPT/HCPCS: Z7502